=== PATIENT | female | born 1960 | race Caucasian/White ===

== ENCOUNTER 2017-03-08 22:37 | Emergency (ER) | payer OTHER ==
[~2017-03-08] VITALS: Ht 154.9 cm; Wt 55.7 kg
[2017-03-08 22:52] VITALS: BP 129/61
== END 2017-03-09 00:35 | disposition home or self-care (01) ==
LOC: EME 22:37
DX: S93.402A Sprain of unspecified ligament of left ankle, initial encounter (principal); E03.9 Hypothyroidism, unspecified; X58.XXXA Exposure to other specified factors, initial encounter; Y93.01 Activity, walking, marching and hiking; Z88.2 Allergy status to sulfonamides
CPT/HCPCS: 73610; 99281; 99284